=== PATIENT | male | born 1940 | race Caucasian/White ===

== ENCOUNTER 2016-10-10 13:19 | Emergency (ER) | payer BC, MEDICARE, OTHER ==
[~2016-10-10] VITALS: Ht 177.8 cm; Wt 87.3 kg
[~2016-10-10 13:19] MED LIST: CHOL100010 PO; CZR25 PO; FLUT50SP14 NAE
[2016-10-10 13:21] VITALS: TEMP 36.4; Ht 177.8 cm; Wt 87.3 kg
[2016-10-10] MEDS ORDERED: CALC500C70 PO (13:38)
[2016-10-10] MEDS ORDERED: NAPR1TAB9 PO (13:38)
--- NOTE | 2016-10-10 14:01 | DIAGNOSTIC IMAGING REPORT ---
RIGHT KNEE 1 OR 2 VIEWS ROUTINE CLINICAL HISTORY: right knee pain Right pain COMPARISON: None. DISCUSSION: The bones and joint spaces appear intact. There is no evidence of fracture, dislocation or bony disease. There is no evidence for soft tissue swelling. IMPRESSION: Negative study. The above report was generated using voice recognition software. It may contain grammatical, syntax or spelling errors. Electronically signed by: Devyn Coronel M.D. 10/10/2016 1:59 PM Dictated Date/Time: 10/10/2016 1:59 PM
--- NOTE | 2016-10-10 14:45 | EMERGENCY ROOM VISIT NOTE ---
ED Visit Note First contact with patient: 13:32 CHIEF COMPLAINT: Right knee pain HISTORY OF PRESENT ILLNESS: This 76-year-old male presents the ER with chief complaint of right knee pain. The patient states for the last week he has had some intermittent sharp pains under his kneecap and straight back to the popliteal region. The patient states it hurts to bend his knee. The patient states then today she went to step up on a step and got a sharp pain and his knee gave out but he was able to catch himself and he did not fall to the ground. The patient denies any prior surgery to his right knee. The patient has seen [facility] in the past for prior orthopedic needs. REVIEW OF SYSTEMS: 6 system review was performed and was negative unless stated otherwise in history of present illness. PMH: The patient is healthy; hypertension, kidney stones, sinus surgery, hernia surgery SOCIAL HISTORY: Patient lives with his daughter. The patient denies any tobacco use but admits to occasional alcohol use. PHYSICAL EXAM: Vital Signs: Were reviewed Reviewed Nurse's notes. GEN.: 76-year -old white male appears in no acute distress. MENTAL STATUS: Alert, oriented, and cooperative. RIGHT KNEE: No gross bony deformity noted. No erythema or edema noted. No ligament instability noted. The patient has limited range of motion secondary to pain. With approximately 30 of flexion the patient had a sharp pain under his patella and in the popliteal region. The patient's calf is nontender. No erythema noted. Negative Homans. EMERGENCY DEPARTMENT COURSE: The patient was evaluated. The patient was offered pain medication but declined. The patient's EMR and medication list were reviewed. X-ray of the right knee was ordered and interpreted by the radiologist and myself. DIAGNOSTICS:RIGHT KNEE 1 OR 2 VIEWS ROUTINE CLINICAL HISTORY: right knee pain Right pain COMPARISON: None. DISCUSSION: The bones and joint spaces appear intact. There is no evidence of fracture, dislocation or bony disease. There is no evidence for soft tissue swelling. IMPRESSION: Negative study. The above report was generated using voice recognition software. It may contain grammatical, syntax or spelling errors. Electronically signed by: Devyn Coronel M.D. 10/10/2016 1:59 PM Dictated Date/Time: 10/10/2016 1:59 PM The patient was informed of the x-ray findings. The patient was placed in a knee immobilizer. The patient was discharged home in stable condition. DIAGNOSIS: Right knee pain DISCHARGE INSTRUCTIONS: Knee immobilizer for 3 - 5 days until the pain subsides , ibuprofen, 600 mg every 6 hours if needed for pain. Ice to and elevation to the knee frequently for the next 24 hours. Stay off the leg as much as possible and see your physician or [facility] in 4 or 5 days if you are not improving. Current/Historical Medications Scheduled Calcium/Vitamin D (Os-Basilio 500 Plus D), 1 TAB PO DAILY Losartan Potassium (Losartan Potassium), 25 MG PO DAILY Miscellaneous Medications Naproxen (Aleve), 220 MG PO Allergies Coded Allergies: BEE STING (Verified Allergy, Severe, SWELLING,SOB, 04/03/03) No Known Allergies (Verified , 04/09/13) Vital Signs Date Time Temp Pulse Resp B/P (MAP) Pulse Ox O2 Delivery O2 Flow Rate FiO2 10/10/16 15:20 81 18 156/91 97 10/10/16 13:21 36.4 75 18 179/78 98 Room Air Departure Information Referrals Mora Aguirre M.D. (PCP) Patient Instructions My [facility]
[2016-10-10 15:20] VITALS: BP 156/91; PULSE 81; O2SAT 97
== END 2016-10-10 15:10 | disposition home or self-care (01) ==
LOC: C.EDB 13:20 → C.EDD 15:10
DX: M25.561 Pain in right knee (principal); I10 Essential (primary) hypertension; Z87.442 Personal history of urinary calculi; Z98.890 Other specified postprocedural states

== ENCOUNTER → 2017-02-27 | Outpatient (CLI) | payer MEDICARE ==
[~2017-02-27] MED LIST changes: +CALC500C70 PO; -CHOL100010 PO; -FLUT50SP14 NAE; +NAPR1TAB9 PO
== END | disposition home or self-care (01) ==
LOC: C.PATHSPEC 18:07
PROVIDERS: ATTEND Dermatology
DX: L30.0 Nummular dermatitis (principal)

== ENCOUNTER 2017-10-19 09:00 | Emergency (ER) | payer MEDICARE ==
[~2017-10-19] VITALS: Ht 177.8 cm; Wt 88.2 kg
[2017-10-19 09:08] VITALS: Ht 177.8 cm; Wt 88.2 kg
[2017-10-19] MEDS ORDERED: CEPHALEXIN MONOHYDRATE 250 MG CAP PO ONE (09:45)
[2017-10-19] MEDS ORDERED: CEPH500C PO (10:58)
--- NOTE | 2017-10-19 10:59 | EMERGENCY ROOM VISIT NOTE ---
History Report prepared by Corrine: Naty Stanley Under the Supervision of: Dr. Willam Corbett D.O. First contact with patient: 09:21 Chief Complaint: WOUND INFECTION Stated Complaint: WOUND INFECTION RIGHT ARM Nursing Triage Summary: patient reports using peroxide and Nu Skin on wound to right posterior forearm, states "it hasn't really been healing and started to smell." Scant amount of seeping on scabbed area, no odor noted at this time Nu Skin sloughing around wound area History of Present Illness The patient is a 77 year old male who presents to the Emergency Room with complaints of worsening right arm wound starting a couple weeks ago. The patient was working in the garage when he hit his right arm and tore his skin. Since then, he has been feeling fatigued with headache and stiff neck. He noticed pus and odor from his arm today and decided to come in. He has not noticed any fever. Source of History: patient Onset: couple weeks ago Position: arm (right) Quality: other (wound) Timing: worsening Associated Symptoms: + headache, + neck pain, + fatigue, No fevers Review of Systems See HPI for pertinent positives & negatives. A total of 10 systems reviewed and were otherwise negative. Past Medical & Surgical Medical Problems: (1) Hypertension Family History Cancer Hypertension Social History Smoking Status: Former Smoker Marital Status: Occupation Status: retired Current/Historical Medications Scheduled Calcium/Vitamin D (Os-Basiilo 500 Plus D), 1 TAB PO DAILY Losartan Potassium (Losartan Potassium), 25 MG PO DAILY Miscellaneous Medications Naproxen (Aleve), 220 MG PO Allergies Coded Allergies: BEE STING (Verified Allergy, Severe, SWELLING,SOB, 10/19/17) Physical Exam Vital Signs Date Time Temp Pulse Resp B/P (MAP) Pulse Ox O2 Delivery O2 Flow Rate FiO2 10/19/17 10:48 65 16 118/82 98 Room Air 10/19/17 09:08 36.6 71 18 144/79 98 Room Air Physical Exam CONSTITUTIONAL/VITAL SIGNS: Reviewed / noted above. GENERAL: Non-toxic in appearance. INTEGUMENTARY: Warm, dry, and [place]. Skin tear to the right forearm with overlying Nu skin sprayed on, no surrounding erythema. There is purulent drainage noted from the wound. No red streak up the arm. HEAD: Normocephalic. EYES: without scleral icterus or trauma. ENT/OROPHARYNX: clear and moist. LYMPHADENOPATHY/NECK: Is supple without lymphadenopathy or meningismus. RESPIRATORY: Lungs clear and equal. CARDIOVASCULAR: Regular rate and rhythm. GI/ABDOMEN: Soft and nontender. No organomegaly or pulsatile mass. No rebound or guarding. Normal bowel sounds. EXTREMITIES: Warm and well perfused. BACK: No CVA tenderness. NEUROLOGICAL: Intact without focal deficits. PSYCHIATRIC: normal affect. MUSCULOSKELETAL: Normally developed with good muscle tone. Medical Decision & Procedures Medications Administered Medications (Trade) Dose Ordered Sig/Jackson Route Start Time Stop Time Status Last Admin Dose Admin Cephalexin Monohydrate (Keflex Cap) 500 mg NOW ONCE PO 10/19/17 09:45 10/19/17 09:46 DC 10/19/17 09:58 500 MG ED Course 929: Previous medical records were reviewed. The patient was evaluated in room A12B. A complete history and physical examination was performed. I discussed the results and findings with the patient. He verbalized agreement of the treatment plan. He was discharged home. 0945: Keflex Cap 500 mg PO. Medical Decision Differential diagnosis: Etiologies such as cellulitis, abscess, MRSA infection, DVT, necrotizing fasciitis, dermatitis, drug eruption, as well as others were entertained. There is a 69-year-old male who presents to the ED with a chief complaint of a discharge from her right arm wound. The patient states that he injured his right arm on a compressor couple of weeks ago. He subsequently sprayed some new skin bandage on it. Today he noticed some discharge from the wound. A culture was taken. There is no surrounding erythema. There is some pus coming from the center of the wound. There is no red streaks up the arm. The patient was started on Keflex. He was discharged. Medication Reconcilliation Current Medication List: was personally reviewed by me Blood Pressure Screening Patient's blood pressure: Elevated blood pressure Blood pressure disposition: Referred to PCP Impression Primary Impression: Cellulitis of arm, right Scribe Attestation The scribe's documentation has been prepared under my direction and personally reviewed by me in its entirety. I confirm that the note above accurately reflects all work, treatment, procedures, and medical decision making performed by me. Departure Information Dispostion Home / Self-Care Prescriptions Cephalexin Monohydrate (Keflex) 500 Mg Cap 500 MG PO QID, #40 CAP Prov: Mishock,Willam, D.O. 10/19/17 Referrals Mora Aguirre M.D. (PCP) Patient Instructions My [facility] Additional Instructions Keflex as prescribed for infection. Return for fevers, increasing redness, red streak up the arm, vomiting or other concerns.
[2017-10-19 11:10] VITALS: BP 119/72; PULSE 71; TEMP 36.7; O2SAT 99
== END 2017-10-19 11:15 | disposition home or self-care (01) ==
LOC: C.EDB 09:01 → C.EDA 11:15
DX: L03.113 Cellulitis of right upper limb (principal); I10 Essential (primary) hypertension; Z87.891 Personal history of nicotine dependence; Z91.030 Bee allergy status; Z82.49 Family history of ischemic heart disease and other diseases of the circulatory system; Z79.899 Other long term (current) drug therapy